=== PATIENT | male | born 1950 | race Caucasian/White ===

== ENCOUNTER 2025-10-07 08:26 | Outpatient (CLI) | payer OTHER | END 2025-10-07 08:27 | disposition home or self-care (01) | LOC: MRI 08:26 → EDSEX 08:26 → MRI 08:27 | PROVIDERS: ATTEND Family Medicine | DX: M54.12 Radiculopathy, cervical region (principal); G95.89 Other specified diseases of spinal cord; G95.20 Unspecified cord compression | CPT/HCPCS: 72141 ==